=== PATIENT | male | born 1995 | race Caucasian/White ===

== ENCOUNTER 2020-11-28 20:39 | Emergency (ER) | payer SELFPAY ==
[2020-11-28] MEDS ORDERED: Tetracaine HCl/PF 0.5% 4 ML Bottle EYEBOTH ONE (20:47)
[2020-11-28] MEDS ORDERED: Erythromycin Base 0.5% Ophth Oint 1 GM Tube EYELF ONE (21:10)
--- NOTE | 2020-11-28 21:13 | EDM.PDOC ---
ED HPI GENERAL MEDICAL PROBLEM - General Chief Complaint: Eye Problems Stated Complaint: LT EYE IRRITATION Time Seen by Provider: 11/28/20 20:41 Source of Information: Reports: Patient History Limitations: Reports: No Limitations - History of Present Illness INITIAL COMMENTS - FREE TEXT/NARRATIVE: HISTORY AND PHYSICAL: History of present illness: Patient is a 25-year-old male who presents to the emergency room with complaints of left eye irritation and sensation of foreign body presents 1 PM. He states he can feel "something in there". Denies any change in vision, blurred vision or discharge. Denies any injury or trauma. Offers no systemic complaints. Tetanus is up-to-date in the last 5 years. Review of systems: As per history of present illness and below otherwise all systems reviewed and negative. Past medical history: As per history of present illness and as reviewed below otherwise noncontributory. Surgical history: As per history of present illness and as reviewed below otherwise noncontributory. Social history: See social history for further information Family history: As per history of present illness and as reviewed below otherwise noncont ributory. Physical exam: General: Well developed and well nourished. Alert and orientated x 3. Nontoxic in appearance and in no acute distress. Vital signs are stable and have been reviewed by me. Nursing notes were reviewed. HEENT: Atraumatic, normocephalic, pupils equal and reactive bilaterally, negative for conjunctival pallor or scleral icterus, scleral injection of the left eye with a pinpoint foreign body noted at the 1 o'clock position adjacent to the pupil. Mucous membranes moist, TMs normal bilaterally, throat clear, neck supple, nontender, trachea midline. No drooling or trismus noted. No meningeal signs. No hot potato voice noted. Lungs: Clear to auscultation bilaterally. No wheezes, rales, or rhonchi. Chest nontender. Normal work of breathing, no accessory muscles used. Heart: S1S2, regular rate and rhythm without overt murmur, gallops, or rubs. No JVD. No peripheral edema Abdomen: Soft, nondistended, nontender. Skin: Intact, warm, dry. No lesions or rashes noted. Hematologic: No petechiae or purpra. Mucosa appropriate color and normal nail bed color and refill. Extremities: Atraumatic, moves all extremities per self without difficulty or deficits, negative for cords or calf pain. Neurovascular unremarkable. Neuro: Awake, alert, oriented. Cranial nerves II through XII unremarkable. Cerebellum unremarkable. Motor and sensory unremarkable throughout. Exam nonfo leonard. Psychiatric: Mood and affect are appropriate. Normal thought process. Answering questions appropriately. Notes: *This patient was seen and evaluated during the 2019 SARS-CoV-2 novel coronavirus pandemic period. Community viral transmission is ongoing at time of this encounter and the emergency department is operating under pandemic response procedures. Tetracaine was used to anesthetize the eye. Visual exam shows scleral injection of the left eye with a pinpoint foreign body noted at the 1 o'clock position adjacent to the pupil. Able to easily removed the foreign body with a blunted needle. He did have a surrounding rust ring which was removed with the ophthalmic bur. Patient tolerated well. Erythromycin ointment was applied. I have talked with the patient about today's findings, in addition to providing specific details for plan of care. Reassessment at the time of disposition demonstrates that the patient is in no acute distress. Encourage patient to follow-up with ophthalmology tomorrow. The patient is stable for discharge, counseling was provided and we discussed in great detail signs and symptoms that would prompt them to return to the Emergency Department. Medication, follow up and supportive care measures were reviewed and discussed. Voices understanding and is agreeable to plan of care. Denies any further questions or concerns at this time. Diagnostics: None Therapeutics: Tetracaine, erythromycin ointment Prescription: Erythromycin ointment Impression: Eye foreign body, left Plan: 1. You were evaluated today on an emergent basis. Please use the erythromycin ointment every 4 hours while awake, 5-6 times daily over the next 5 days. 2. You can alternate Tylenol and ibuprofen as needed for pain and fever management. 3. We encourage you to follow up with Ophthalmology in the next few days for re- evaluation and further care/management. 4. If your symptoms should worsen, new symptoms develop or any of the signs and symptoms we discussed should arise please return to the emergency room or call 911 (if needed). Definitive disposition and diagnosis as appropriate pending reevaluation and review of above. Left Eye Pain Score (Numeric/FACES): 4 - Related Data Allergies Allergy/AdvReac Type Severity Reaction Status Date / Time No Known Allergies Allergy Verified 11/28/20 20:56 Home Meds: Home Meds Erythromycin Base [Erythromycin 0.5% Ophth Oint] 1 applic OP Q4H 5 Days #1 tube 11/28/20 [Rx] Past Medical History - Past Health History Medical/Surgical History: Denies Medical/Surgical History - Infectious Disease History Infectious Disease History: Reports: None Social & Family History - Tobacco Use Tobacco Use Status *Q: Never Tobacco User - Caffeine Use Caffeine Use: Reports: None - Recreational Drug Use Recreational Drug Use: No ED ROS GENERAL - Review of Systems Review Of Systems: Comprehensive ROS is negative, except as noted in HPI. ED EXAM GENERAL W FULL EYE - Physical Exam Exam: See Below (See dictation) ED EYE w/ Add Procedure - Eye Procedure Alcaine Drops Administered: Yes Eye FB Removal: Removal w/ Needle Eye Irrigated w/ Saline (ccs): 250 Antibiotic Oinment/Drps Admin: Left Eye Course - Vital Signs Last Recorded V/S: Last Vital Signs Temp 97.5 F 11/28/20 20:57 Pulse 68 11/28/20 21:20 Resp 18 11/28/20 21:20 BP 110/70 11/28/20 21:20 Pulse Ox 97 11/28/20 21:20 - Orders/Labs/Meds Meds: Medications Discontinued Medications Generic Name Dose Route Start Last Admin Trade Name Kahlil PRN Reason Stop Dose Admin Erythromycin 1 gm 11/28/20 21:10 11/28/20 21:18 Erythromycin Base 0.5% Ophth Oint 1 Gm Tube EYELF 11/28/20 21:11 1 applic ONETIME ONE Administration Tetracaine HCl 1 ml 11/28/20 20:47 11/28/20 21:17 Tetracaine Hcl/Pf 0.5% 4 Ml Bottle EYEBOTH 11/28/20 20:48 2 drop ASDIRECTED ONE Administration Departure - Departure Time of Disposition: 21:12 Disposition: Home, Self-Care 01 Clinical Impression: Foreign body, eye Qualifiers: Encounter type: initial encounter Laterality: left Qualified Code(s): T15.92XA - Foreign body on external eye, part unspecified, left eye, initial encounter - Discharge Information Prescriptions: Erythromycin Base [Erythromycin 0.5% Ophth Oint] 1 applic OP Q4H 5 Days #1 tube Instructions: Eye Foreign Body, [id number] Referrals: Aleksandr Downs [Primary Care Provider] - Forms: ED Department Discharge Care Plan Goals: The following information is given to patients seen in the emergency department who are being discharged to home. This information is to outline your options for follow-up care. We provide all patients seen in our emergency department with a follow-up referral. The need for follow-up, as well as the timing and circumstances, are variable depending upon the specifics of your emergency department visit. If you don't have a primary care physician on staff, we will provide you with a referral. We always advise you to contact your personal physician following an emergency department visit to inform them of the circumstance of the visit and for follow-up with them and/or the need for any referrals to a consulting specialist. The emergency department will also refer you to a specialist when appropriate. This referral assures that you have the opportunity for follow-up care with a specialist. All of these measure are taken in an effort to provide you with optimal care, which includes your follow-up. Under all circumstances we always encourage you to contact your private physician who remains a resource for coordinating your care. When calling for follow-up care, please make the office aware that this follow-up is from your recent emergency room visit. If for any reason you are refused follow-up, please contact the [facility] Emergency Department at and asked to speak to the emergency department charge nurse. [facility] [address] [place] [address] [place] [address] Thank you for choosing the [facility] emergency department in [place] for your medical needs today. It was a pleasure caring for you. Today you were seen in the emergency department for eye irritation and foreign body 1. You were evaluated today on an emergent basis. Please use the erythromycin ointment every 4 hours while awake, 5-6 times daily over the next 5 days. 2. You can alternate Tylenol and ibuprofen as needed for pain and fever management. 3. We encourage you to follow up with Ophthalmology in the next few days for re- evaluation and further care/management. 4. If your symptoms should worsen, new symptoms develop or any of the signs and symptoms we discussed should arise please return to the emergency room or call 911 (if needed). Sepsis Event Note (ED) - Evaluation Sepsis Screening Result: No Definite Risk - Focused Exam Vital Signs: Vital Signs Temp Pulse Resp BP Pulse Ox 11/28/20 21:20 68 18 110/70 97 11/28/20 20:57 97.5 F 72 16 129/74 99
== END 2020-11-28 21:21 | disposition home or self-care (01) ==
LOC: MW.ED 20:39
DX: T15.92XA Foreign body on external eye, part unspecified, left eye, initial encounter (principal)
CPT/HCPCS: 65220; 99283; A9270